=== PATIENT | female | born 1985 | race Caucasian/White ===

== ENCOUNTER 2023-06-14 22:20 | Outpatient (REF) | payer OTHER, SELFPAY ==
[2023-06-17 22:08] LABS: Age Gdln ACOG Testing Note (.); HPV Aptima Negative (Negative); IGP, Aptima HPV, rfx 16/18,45 Note (.)
== END 2023-06-14 22:21 | disposition home or self-care (01) ==
LOC: LAB 22:20
PROVIDERS: Visit Provider Obstetrics & Gynecology
DX: Z01.419 Encounter for gynecological examination (general) (routine) without abnormal findings (principal)
CPT/HCPCS: 87624; G0145

== ENCOUNTER 2024-06-20 19:10 | Outpatient (REF) | payer OTHER, SELFPAY | END 2024-06-20 19:11 | disposition home or self-care (01) | LOC: LAB 19:10 | PROVIDERS: Visit Provider Obstetrics & Gynecology | DX: Z01.419 Encounter for gynecological examination (general) (routine) without abnormal findings (principal) | CPT/HCPCS: 87624; 88175 ==

== ENCOUNTER 2025-06-25 12:31 | Outpatient (REF) | payer OTHER, SELFPAY ==
--- OUTSIDE RECORDS SUMMARY | 2025-06-25 10:00 | XMS_ITS | Encounter Summary ---
Author Organization [facility] Address [address] [place] [address] Care Team Providers Care County Agricultural Agent Name Role Phone Gabriel Sanderson DO Primary Care Provider [phone] Reason for Visit * Reason Comments Well Women Visit Encounter Details Date Type Department Care Team (Late st Contact Info) Description 06/25/2025 10:00 AM EDT Office Visit [facility] [place] [facility] [address] [place] [address] Harish Sanabria DO [address] [facility] [place] [address] Well woman exam with routine gynecological exam (Primary Dx); Encounter for screening mammogram for malignant neoplasm of breast Social History Tobacco Use Types Packs/Day Years Used Date Smoking Tobacco: Never Alcohol Use Standard Drinks/Week Comments Never 0 (1 standard drink = 0.6 oz pur e alcohol) B1300 Health Literacy Answer Date Recor ded How often do you need to hav e someone help you when you read instructions, pamphlets, or other written material from your doctor or pharmacy? Never 05/28/2024 Social Connection and Isolat ion Panel [NHANES] Answer Date Recorded In a typical week, how many times do you talk on the phone with family, friends, or neighbors? More than three times a week 05/28/2024 How often do you get togethe r with friends or relatives? Once a week 05/28/2024 How often do you attend chur ch or moravian services? Never 05/28/2024 Do you belong to any clubs o r organizations such as restorationism groups, unions, fraternal or athletic groups, or school groups? No 05/28/2024 How often do you attend meet ings of the clubs or organizations you belong to? Never 05/28/2024 Are you , , di vorced, , never , or living with a partner? 05/28/2024 AUDIT-C Answer Date Recorded Q1: How often do you have a drink containing alcohol? 4 or more times a week 05/28/2024 Q2: How many drinks containi ng alcohol do you have on a typical day when you are drinking? 5 or 6 Q3: How often do you have si x or more drinks on one occasion? Weekly 05/28/2024 Overall Financial Resource Strain (CARDIA) Answe r Date Recorded How hard is it for you to pa y for the very basics like food, housing, medical care, and heating? Somewhat hard 05/28/2024 PHQ-2 Answer Date Recorded Patient Health Questionnaire-2 Score 0 06/20/2023 [facility] of Occupat ional [facility] - Occupational Stress Questionnaire Answer Date Recorded Do you feel stress - tense, restless, nervous, or anxious, or unable to sleep at night because your mind is troubled all the time - these days? Very much 05/28/2024 Exercise Vital Sign Answer Date Recorde d On average, how many days pe r week do you engage in moderate to strenuous exercise (like a brisk walk)? 5 days 05/28/2024 On average, how many minutes do you engage in exercise at this level? 40 min 05/28/2024 Hunger Vital Sign Answer Date Recorded Within the past 12 months, y ou worried that your food would run out before you got the money to buy more. Never true 05/28/20 24 Within the past 12 months, t he food you bought just didn't last and you didn't have money to get more. Never true 05/28/2024 PRAPARE - Transportation Answer Date Re corded In the past 12 months, has l ack of transportation kept you from medical appointments or from getting medications? No 05/15 In the past 12 months, has l ack of transportation kept you from meetings, work, or from getting things needed for daily living? No 05/28/2024 Housing Stability Vital Sign Answer Jorge e Recorded In the last 12 months, was t here a time when you were not able to pay the mortgage or rent on time? No 05/28/2024 Number of Times Moved in the Last Year Not on fi le 05/28/2024 At any time in the past 12 m [facility], were you homeless or living in a fpc (including now)? No 05/28/2024 Comments No Sex and Gender Information Value Date Recorded Sex Assigned at Female 04/27/2023 8:44 AM EDT Legal Sex Female 6:51 PM EDT Gender Identity Female 01/27/2023 6:51 PM EDT Sexual Orientation Not on file documented as of this encounter Last Filed Vital Signs Vital Sign Reading Time Taken Comments Blood Pressure 120/86 06/25/2025 10:01 AM EDT Pulse - - Temperature - - Respiratory Rate - - Oxygen Saturation - - Inhaled Oxygen Concentration - - Weight 68 kg (150 lb) 06/25/2025 10:01 AM EDT Height 167.6 cm (5' 6 ) 06/25/2025 10:01 AM EDT Body Mass Index 24.21 06/25/2025 10:01 AM EDT documented in this encounter Plan of Treatment Upcoming Encounters Date Type Department Care Team (Late st Contact Info) Description 06/27/2026 9:00 AM EDT Procedure Visit [facility] [address] [place] [address] Harish Sanabria DO [address] [place] [address] Scheduled Orders Name Type Priority Associated Diagnoses Orde r Schedule Bilateral screening mammogram Imaging Routine Encounter for screening mammogram for malignant neoplasm of breast Expected: 06/25/2025 (Approximate), Expires: 08/25/2026 THIN PREP TIS PAP AND HR HPV DNA Pathology and Cytology Routine Well woman exam with routine gynecological exam Ordered: 06/25/2025 documented as of this encounter Visit Diagnoses Diagnosis Well woman exam with routine gynecological exam- Primary Routine gynecological examination Encounter for screening mammogram for malignant neoplasm of breast documented in this encounter Care Teams County Agricultural Agent Relationship Specialty Start Date End Date Gabriel Sanderson DO [address] [place] [address] PCP - General Family Medicine 04/28/23 documented as of this encounter
--- OUTSIDE RECORDS SUMMARY | 2025-06-25 12:35 | XMS_ITS | Clinical Summary ---
Author Organization [facility] Address [address] [place] [address] Care Team Providers Care Head Control Clerk Name Role Phone Gabriel Sanderson DO Primary Care Provider [phone] Allergies Active Allergy Reactions Criticality Noted Date Comments Bee Venom Hives 05/31/2024 Pt states she broke out in hives and got cellulitis. Medications Levonorgestrel (Mirena, 52 MG,) 20 MCG/DAY intrauterine device Insert 1 Intra Uterine Device into the vagina in the morning. Active DIGESTIVE ENZYMES PO Take by mouth Active buPROPion XL (Wellbutrin XL) 300 MG 24 hr tabletIndications :Mood disorder Take 1 tablet (300 mg) by mouth Daily Do not crush, chew, or split. 90 tablet 3 08/23/20 24 025 Active Linzess 145 MCG capsuleIndication s:Constipation, unspecified constipation type TAKE 1 CAPSULE IN THE MORNING BEFORE A MEAL 90 capsule 3 06/14/20 25 Active estradiol (Climara) 0.025 MG/24HRIndication s:Well woman exam with routine gynecological exam Place 1 patch over 7 days on the skin 1 (one) time per week 12 patch 3 06/25/20 25 026 Active progesterone (Prometrium) 100 MG capsuleIndication s:Well woman exam with routine gynecological exam Take 1 capsule (100 mg) by mouth Daily 30 capsule 11 06/25/20 25 026 Active buPROPion XL (Wellbutrin XL) 150 MG 24 hr tabletIndications :Poor concentration Take 2 tablets (300 mg) by mouth Daily Do not crush, chew, or split. 60 tablet 2 08/22/20 24 025 Discontinued linaCLOtide (Linzess) 145 MCG capsuleIndication s:Constipation, unspecified constipation type Take 1 capsule (145 mcg) by mouth in the morning. Take before meals. 90 capsule 01/08/20 25 025 Discontinued Active Problems Problem Noted Date Diagnosed Date Abdominal bloating 05/30/2024 Pre-menstrual syndrome 05/30/2024 Constipation 04/28/2023 Fatigue 04/28/2023 Low libido 04/28/2023 Overweight (BMI 25.0-29.9) 04/28/2023 Poor concentration 04/28/2023 Premenstrual tension syndrome 04/28/2023 Weight gain 04/28/2023 Encounters Date Type Department Care Team Description 06/25/2025 10:00 AM EDT Office Visit [facility] [address] [place] [address] Harish Sanabria DO Well woman exam with routine gynecological exam (Primary Dx); Encounter for screening mammogram for malignant neoplasm of breast 06/25/2025 Bamboo flowsheet [facility] [address] [place] [address] Harish Sanabria DO 06/18/2025 Orders Only [facility] [address] [place] [address] Regina Lal LPN 06/18/2025 Travel 06/13/2025 Refill [facility] [place] [facility] [address] [place] [id number] Bharti Beltran, [employer] Constipation, unspecified constipation type 06/13/2025 Refill [facility] [address] [place] [address] Harish Sanabria DO Constipation, unspecified constipation type from Last 3 Months Family History Medical History Relation Name Comments No Known Problems Brother 3 Heart disease Father No Known Problems Sister 2 No Known Problems Son 2 Relation Name Status Comments Brother Daughter Alive Father Alive Maternal Grandfather Maternal Grandmother Mother Alive Paternal Grandfather Paternal Grandmother Sister Son Alive Social History Tobacco Use Types Packs/Day Years Used Date Smoking Tobacco: Never Tobacco Cessation:Counseling Given: Not Answered Alcohol Use Standard Drinks/Week Comments Never 0 [...] 05/28/2024 How often do you attend chur or holiness services? Never 05/28/2024 Do you belong to any clubs o r organizations such as hinduism groups, unions, fraternal or athletic groups, or [...] Recorded Patient Health Questionnaire-2 Score 0 06/20/2023 [facility] of Occupat ional Health - Occupational Stress Questionnaire Answer Date Recorded [...] any time in the past 12 m [facility], were you homeless or living in a senior care (including now)? No 05/28/2024 Comments No Sex and Gender Information Value Date Recorded Sex Assigned at Female 04/27/2023 8:44 AM EDT Legal Sex Female 6:51 PM EDT Gender Identity Female 01/27/2023 6:51 PM EDT Sexual Orientation Not on file Last Filed Vital Signs Vital Sign Reading Time Taken Comments Blood Pressure 120/86 06/25/2025 10:01 AM EDT Pulse 83 05/31/2024 9:04 AM EDT Temperature 35.8 C (96.5 F) 05/31/2024 9:04 AM EDT Respiratory Rate - - Oxygen Saturation 97% 05/31/2024 9:04 AM EDT Inhaled Oxygen Concentration - - Weight 68 kg (150 lb) 06/25/2025 10:01 AM EDT Height 167.6 cm (5' 6 ) 06/25/2025 10:01 AM EDT Body Mass Index 24.21 06/25/2025 10:01 AM EDT Plan of Treatment Upcoming Encounters Date Type Department Care Team (Late st Contact Info) Description 06/27/2026 9:00 AM EDT Procedure Visit [facility] [address] [place] [address] Harish Sanabria DO [address] [place] [address] [place] [address] Health Maintenance Due Date Last Done Comments Mammogram 2025 02/07/2018 Influenza Vaccine (#1) 2025 Pap Smear 06/20/2027 06/20/2024, 06/14/2023 Cervical Cancer Screening 06/22/2028 HPV/Cotest 06/22/2028 06/22/2023, 05/30/2019 Procedures Procedure Name Priority Date/Time Associated Diagnosis Comments PAP SMEAR Routine 06/20/2024 12:00 AM EDT THINPREP PAP AND HPV MRNA E6/E7 W/RFL HPV 16,18/45 Routine 06/22/2023 10:52 AM EDT Well woman exam with routine gynecological exam BI MAMMOGRAM DIAGNOSTIC BILATERAL Routine 02/07/2018 12:00 PM EDT Mastodynia from Last 3 Months or Most Recently Relevant to Health Maintenance Results * Pap Smear (06/20/2024 12:00 AM EDT) Swab Cervical swab / Unknown Daniele Nurse [facility] Ob LAB CYTOLOGY ORDERABLES Final Result EXTERNAL LAB * THINPREP PAP AND HPV MRNA E6/E7 W/RFL HPV 16,18/45 (06/22/2023 10:52 AM EDT) us Harish Sanabria DO LAB BLOOD ORDERABLES Final Resul t Performing Organization Address City/[facility]/ZIP Co de Phone Number EXTERNAL LAB * Bilateral diagnostic mammogram (02/07/2018 12:00 PM EDT) Anatomical Region Laterality Modality Breast Bilateral Mammography Narrative 02/07/2018 12:00 PM EDT PERFORMED AT [facility] LOCATION:[id number] Procedure Note CONVERSION, GENERIC / Bharti Beltran - 05/21/2023 PERFORMED AT [facility] LOCATION:[id number] Bharti Beltran [employer] IMG BI PROCEDURES Final Result from Last 3 Months or Most Recently Relevant to Health Maintenance Insurance [employer] Care Teams Head Control Clerk Relationship Specialty Start Date End Date Gabriel Sanderson DO [address] [place] [address] PCP - General Family Medicine 04/28/23
--- OUTSIDE RECORDS SUMMARY | 2025-06-25 12:35 | XMS_ITS | Encounter Summary ---
Author Organization [facility] Address [address] [place] [address] Care Team Providers Care Process Control Operator Name Role Phone Gabriel Sanderson DO Primary Care Provider [phone] Encounter Details Date Type Department Care Team (Late st Contact Info) Description 06/25/2025 Bamboo flowsheet [facility] [address] [facility] [place] [address] Harish Sanabria DO [address] [facility] [address] [place], [facility] Social History Tobacco Use Types Packs/Day Years [...] often do you attend chur ch or yazidism services? Never 05/28/2024 Do you belong to any clubs o r organizations such as buddhism groups, unions, fraternal or athletic groups, or [...] Recorded Patient Health Questionnaire-2 Score 0 06/20/2023 [facility] of Occupat ional [facility] - Occupational Stress Questionnaire Answer Date Recorded [...] any time in the past 12 m [facility], were you homeless or living in a mcc (including now)? No 05/28/2024 Comments No Sex and Gender Information Value Date Recorded Sex Assigned at Female 04/27/2023 8:44 AM EDT Legal Sex Female 6:51 PM EDT Gender Identity Female 01/27/2023 6:51 PM EDT Sexual Orientation Not on file documented as of this encounter Plan of Treatment Upcoming Encounters Date Type Department Care Team (Late st Contact Info) Description 06/27/2026 9:00 AM EDT Procedure Visit [facility] [address] [facility] [place] [phone] Harish Sanabria DO [address] [facility] [place] [address] documented as of this encounter Visit Diagnoses Not on filedocumented in this encounter Care Teams Process Control Operator Relationship Specialty Start Date End Date Gabriel Sanderson DO [address] [place] [address] PCP - General Family Medicine 04/28/23 documented as of this encounter
--- OUTSIDE RECORDS SUMMARY | 2025-06-25 12:35 | XMS_ITS | Encounter Summary ---
Author Organization [facility] Address [address] [facility] [place] [address] Care Team Providers Care [employer]ometric[employer] Professor Name Role Phone Gabriel Sanderson DO Primary Care Provider [phone] Kendall Sapp DO Unavailable [phone] Reason for Visit * Reason Comments New Med Request Encounter Details Date Type Department Care Team (Late st Contact Info) Description 05/17/2023 Refill [facility] [place] [facility] [address] [place] [phone] Harish Sanabria DO [address] [facility] [address] [place], [facility] Overweight (BMI 25.0-29.9) Social History Tobacco Use Types Packs/Day Years Used Date Smoking Tobacco: Never Alcohol Use Standard Drinks/Week Comments Never 0 (1 standard drink = 0.6 oz pur e alcohol) AUDIT-C Answer Date Recorded Q1: How often do you have a drink containing alcohol? Never 04/28/2023 Q2: How many drinks containi ng alcohol do you have on a typical day when you are drinking? Patient does not drink Q3: How often do you have si x or more drinks on one occasion? Never 04/28/2023 PHQ-2 Answer Date Recorded Patient Health Questionnaire-2 Score 0 04/28/2023 Comments Unknown Sex and Gender Information Value Date Recorded Sex Assigned at Female 04/27/2023 8:44 AM EDT Legal Sex Female 6:51 PM EDT Gender Identity Female 01/27/2023 6:51 PM EDT Sexual Orientation Not on file COVID-19 Exposure Response Date Recorded In the last 10 days, have yo u been in contact with someone who was confirmed or suspected to have Coronavirus/COVID-19? No / Unsure 04/27/2023 8:48 AM EDT documented as of this encounter Plan of Treatment Upcoming Encounters Date Type Department Care Team (Late st Contact Info) Description 06/27/2026 9:00 AM EDT Procedure Visit [facility] [address] [place] [address] Harish Sanabria DO [address] [facility] [place] [address] documented as of this encounter Visit Diagnoses Diagnosis Overweight (BMI 25.0-29.9) Overweight documented in this encounter Care Teams [employer]ometric[employer] Professor Relationship Specialty Start Date End Date Gabriel Sanderson DO [address] [email or web address] [address] [place] [address] PCP - General Family Medicine 04/28/23 Kendall Sapp DO [address] [place] [address] PCP - Medical [employer] 07/16/16 06/07/25 documented as of this encounter
--- OUTSIDE RECORDS SUMMARY | 2025-06-25 12:35 | XMS_ITS | Encounter Summary ---
Author Organization [facility] Address [address] [place] [address] Care Team Providers Care Senior Network Systems Engineer Name Role Phone Gabriel Sanderson DO Primary Care Provider [phone] Encounter Details Date Type Department Care Team (Late st Contact Info) Description 06/18/2025 Orders Only [facility] [address] [place] [address] Regina Lal LPN [address] [facility] [id number] Social History Tobacco Use Types Packs/Day Years [...] often do you attend chur ch or christian services? Never 05/28/2024 Do you belong to any clubs o r organizations such as restorationist groups, unions, fraternal or athletic groups, or [...] Recorded Patient Health Questionnaire-2 Score 0 06/20/2023 [facility] of Occupat ional Health - Occupational Stress [...] any time in the past 12 m [facility], were you homeless or living in a mcfp (including now)? No 05/28/2024 Comments No Sex [...] 06/27/2026 9:00 AM EDT Procedure Visit [facility] [address] [place] [address] Harish Sanabria DO [address] [facility] [place] [address] documented as of this encounter Procedures Procedure Name Priority Date/Time Associated Diagnosis Comments PAP SMEAR Routine 06/20/2024 12:00 AM EDT documented in this encounter Results * Pap Smear (06/20/2024 12:00 AM EDT) Swab Cervical swab / Unknown Daniele Nurse [facility] Ob LAB CYTOLOGY ORDERABLES Final Result EXTERNAL LAB documented in this encounter Visit Diagnoses Not on filedocumented in this encounter Care Teams Senior Network Systems Engineer Relationship Specialty Start Date End Date Gabriel Sanderson DO [address] [facility] [address] [place] [address] PCP - General Family Medicine 04/28/23 documented as of this encounter
--- OUTSIDE RECORDS SUMMARY | 2025-06-25 12:35 | XMS_ITS | Encounter Summary ---
Author Organization [facility] Address [address] [place] [address] Care Team Providers Care Collection Card Clerk Name Role Phone Gabriel Sanderson DO Primary Care Provider [phone] Reason for Visit * Reason Comments Med Refill Encounter Details Date Type Department Care Team (Late st Contact Info) Description 06/13/2025 Refill [facility] [address] [facility] [facility] [address] Harish Sanabria DO [address] [facility] [place] [facility] [place] [address] Constipation, unspecified constipation type Social History Tobacco Use Types Packs/Day Years [...] often do you attend chur ch or scientologist services? Never 05/28/2024 Do you belong to any clubs o r organizations such as rastafari groups, unions, fraternal or athletic groups, or [...] Recorded Patient Health Questionnaire-2 Score 0 06/20/2023 [facility] of Occupat ional Health - Occupational Stress [...] any time in the past 12 m [facility], were you homeless or living in a long-term (including now)? No 05/28/2024 Comments No Sex and Gender Information Value Date Recorded Sex Assigned at Female 04/27/2023 8:44 AM EDT Legal Sex Female 6:51 PM EDT Gender Identity Female 01/27/2023 6:51 PM EDT Sexual Orientation Not on file documented as of this encounter Miscellaneous Notes * Telephone Encounter - Regina Lal LPN - 06/14/2025 8:36 AM EDT Refill request received and script sent. documented in this encounter Plan of Treatment Upcoming Encounters Date Type Department Care Team (Late st Contact Info) Description 06/27/2026 9:00 AM EDT Procedure Visit [facility] [address] [facility] [facility] [address] Harish Sanabria DO [address] [facility] [place] [address] documented as of this encounter Visit Diagnoses Diagnosis Constipation, unspecified constipation type documented in this encounter Care Teams Collection Card Clerk Relationship Specialty Start Date End Date Gabriel Sanderson DO [address] [place] [address] PCP - General Family Medicine 04/28/23 documented as of this encounter
--- OUTSIDE RECORDS SUMMARY | 2025-06-25 12:35 | XMS_ITS | Encounter Summary ---
Author Organization [facility] Address [address] [place] [address] Care Team Providers Care Child Care Provider Name Role Phone Gabriel Sanderson DO Primary Care Provider [phone] Encounter Details Date Type Department Care Team (Latest Contact Info) Description 06/18/2025 Travel Social History Tobacco Use Types Packs/Day Years [...] How often do you attend chur or uatsdin services? Never 05/28/2024 Do you belong to any clubs o r organizations such as jewish groups, unions, fraternal or athletic groups, or [...] Recorded Patient Health Questionnaire-2 Score 0 06/20/2023 [facility] of Occupat ional [facility] - Occupational Stress Questionnaire Answer Date Recorded [...] any time in the past 12 m [facility], were you homeless or living in a residential (including now)? No 05/28/2024 Comments No Sex [...] EDT Procedure Visit [facility] [address] [facility] [place] [address] Harish Sanabria DO [address] [facility] [place] [address] documented as of this encounter Visit Diagnoses Not on filedocumented in this encounter Care Teams Child Care Provider Relationship Specialty Start Date End Date Gabriel Sanderson DO [address] [facility] [address] [place] [address] PCP - General Family Medicine 04/28/23 documented as of this encounter
--- OUTSIDE RECORDS SUMMARY | 2025-06-25 12:35 | XMS_ITS | Encounter Summary ---
Author Organization [facility] Address [address] [place] [address] Care Team Providers Care Filling Station Laborer Name Role Phone Gabriel Sanderson DO Primary Care Provider [phone] Kendall Sapp DO Unavailable [phone] Encounter Details Date Type Department Care Team (Late st Contact Info) Description 04/27/2023 Abstract [facility] [address] [place] [id number] Bharti Beltran NP [address] [place] [address] Social History Tobacco Use Types Packs/Day Years [...] AM EDT documented as of this encounter Functional Status * Audit-C Score Answer Date of Assessment Author 0 04/28/2023 8:56 AM EDT Kathy Shaver MA * Question Answer Date of Assessment Author Q1: How often do you have a drink containing alcohol? Never 04/28/2023 8:56 AM EDT Kathy Shaver MA Q2: How many drinks containing alcohol do you have on a typical day when you are drinking? Patient does not drink 04/28/2023 8:56 AM EDT Kathy Shaver MA Q3: How often do you have six or more drinks on one occasion? Never 04/28/2023 8:56 AM EDT Kathy Shaver MA * Over the past 2 weeks, how often have you been bothered by any of the following problems? Question Answer Date of Assessment Author Little interest or pleasure in doing things Not at all 04/28/2023 8:56 AM EDT Kathy Shaver MA Feeling down, depressed, or hopeless Not at all 04/28/2023 8:56 AM EDT Kathy Shaver MA Patient Health Questionnaire -2 Score 0 04/28/2023 8:56 AM EDT Kathy Shaver MA documented as of this encounter Plan of Treatment Upcoming Encounters Date Type Department Care Team (Late st Contact Info) Description 06/27/2026 9:00 AM EDT Procedure Visit [facility] [address] [place] [address] Harish Sanabria DO [address] [place] [address] documented as of this encounter Visit Diagnoses Not on filedocumented in this encounter Care Teams Filling Station Laborer Relationship Specialty Start Date End Date Gabriel Sanderson DO [address] [facility] [address] [place] [address] PCP - General Family Medicine 04/28/23 Kendall Sapp DO [address] [facility] [address] [place] [address] PCP - Medical [place] [employer] 07/16/16 06/07/25 documented as of this encounter
--- OUTSIDE RECORDS SUMMARY | 2025-06-25 12:35 | XMS_ITS | Encounter Summary ---
Author Organization [facility] Address [address] [place] [address] Care Team Providers Care Fabric Sourcer Name Role Phone Gabriel Sanderson DO Primary Care Provider [phone] Reason for Visit * Reason Comments Med Refill Encounter Details Date Type Department Care Team (Late st Contact Info) Description 06/13/2025 Refill [facility] [address] [facility] [address] [place] [address] Bharti Beltran, ADE [address] [place] [address] Constipation, unspecified constipation type Social History Tobacco [...] often do you attend chur ch or advent services? Never 05/28/2024 Do you belong to any clubs o r organizations such as sikhism groups, unions, fraternal or athletic groups, or [...] Recorded Patient Health Questionnaire-2 Score 0 06/20/2023 [facility] - Occupational [...] time in the past 12 m [facility], were you homeless or living in a assisted (including now)? No 05/28/2024 Comments No Sex and Gender Information Value Date Recorded Sex Assigned at Female 04/27/2023 8:44 AM EDT Legal Sex Female 6:51 PM EDT Gender Identity Female 01/27/2023 6:51 PM EDT Sexual Orientation Not on file documented as of this encounter Miscellaneous Notes * Telephone Encounter - Akiko Medina MA - 06/13/2025 5:29 PM EDT Pt was last seen on 05/31/24, Pt is not currently scheduled at this time. documented in this encounter Plan of Treatment Upcoming Encounters Date Type Department Care Team (Late st Contact Info) Description 06/27/2026 9:00 AM EDT Procedure Visit [facility] [address] [place] [phone] Harish Sanabria DO [address] [place], [place] [id number] documented as of this encounter Visit Diagnoses Diagnosis Constipation, unspecified constipation type documented in this encounter Care Teams Fabric Sourcer Relationship Specialty Start Date End Date Gabriel Sanderson DO [address] [place] [address] PCP - General Family Medicine 04/28/23 documented as of this encounter
[2025-06-27 14:09] LABS: Age Gdln ACOG Testing Note (.); IGP, Aptima HPV, rfx 16/18,45 Note (.)
== END 2025-06-25 12:32 | disposition home or self-care (01) ==
LOC: LAB 12:31
PROVIDERS: Visit Provider Obstetrics & Gynecology
DX: Z01.419 Encounter for gynecological examination (general) (routine) without abnormal findings (principal)
CPT/HCPCS: 87624; 88175